=== PATIENT | male | born 2000 | race African-American/Black ===

== ENCOUNTER 2022-11-23 12:36 | Emergency (ER) | payer BC ==
[~2022-11-23] VITALS: Ht 198.1 cm; Wt 81.7 kg
== END 2022-11-23 14:04 | disposition home or self-care (01) ==
LOC: ED 12:36
DX: T78.1XXA Other adverse food reactions, not elsewhere classified, initial encounter (principal); K13.0 Diseases of lips
CPT/HCPCS: 99283; J8540